=== PATIENT | female | born 1955 | race Caucasian/White ===

== ENCOUNTER 2018-11-23 13:37 | Observation (INO) | payer OTHER ==
[2018-11-23] MEDS ORDERED: MECLIZINE HCL 25 MG TAB PO ONE ×2 (13:51→16:07)
[2018-11-23] MEDS ORDERED: NS 1,000 ML IV ONE (13:51)
[2018-11-23] MEDS ORDERED: PROMETHAZINE HCL 25 MG/ML INJ IVP ONE (13:52)
--- NOTE | 2018-11-23 13:54 | EDPHY ---
H & P Time Seen by Provider: 11/23/18 13:41 HPI/ROS: CHIEF COMPLAINT: Severe dizziness HISTORY OF PRESENT ILLNESS: History of hypertension otherwise well. Arrives by EMS with symptoms. Was at home sitting floor and she got sudden onset of dizziness worse with changing position or moving her head. She describes that her head was suddenly spinning associated with severe nausea and vomiting. Denies headache on multiple queries, no neck pain. No recent injury. No difficulty with speech or motor or sensory. Symptoms severe and unable to walk. REVIEW OF SYSTEMS: Eye: no change in vision or double vision ENT: no sore throat Cardiac: no chest pain or syncope Pulmonary: no cough or SOB Abdomen: No abdominal pain Musculoskeletal: No neck pain Skin: no rash Neuro: HPI Constitutional: no fever : no urinary symptoms A comprehensive 10 point review of systems is otherwise negative aside from elements mentioned in the history of present illness. PAST MEDICAL HISTORY: Hypertension Social history: Here with her daughter, primarily Irish-speaking, spiral binder present in the room on arrival. General Appearance: Alert and conversant, cooperative. Appears uncomfortable. Eyes: No scleral icterus. Pupils equal reactive extraocular motion intact horizontal nystagmus looking to the right. ENT, Mouth: Normal mucous membranes. Normal tympanic membranes bilaterally. Respiratory: Normal respiratory effort, breath sounds equal, lungs are clear to auscultation. Cardiovascular: Regular rate and rhythm. Gastrointestinal: Abdomen is soft and non tender. Neurological: Alert, face symmetric, normal motor and sensory in extremities. Normal [id number] bilaterally. Speech fluent. Skin: Warm and dry, no rashes. Musculoskeletal: No neck stiffness. Psychiatric: Not agitated. Emergency Department course/MDM: Phenergan 12.5 and meclizine 25. Likely peripheral vertigo. Initially hypertensive pre-hospital with systolic greater than 200 but has decreased since arrival. I considered, but I think it is unlikely she is having cardiac problem or stroke, vertebral dissection, cerebellar bleed Differential diagnosis considered for dizziness including but not limited to peripheral and central causes of vertigo, orthostatic causes including dehydration, and blood loss. 1440: Patient re-evaluated, is sleeping now and was able to tolerate oral fluids and medications. Will recheck. 1606: Patient was able to get up with significant assistance from staff but really unable to walk on her own. Additional oral meclizine 25 mg. Still too dizzy, will be admitted for further evaluation and treatment. Smoking Status: Never smoked Constitutional: Initial Vital Signs Temperature (C) 36.6 C 11/23/18 13:41 Heart Rate 78 11/23/18 13:41 Respiratory Rate 18 11/23/18 13:41 Blood Pressure 136/101 H 11/23/18 13:41 O2 Sat (%) 97 11/23/18 13:41 O2 Delivery Mode Room Air Allergies/Adverse Reactions: No Known Allergies Allergy (Unverified 11/23/18 13:47) Home Medications: Medication Instructions Recorded Hydrochlorothiazide [HCTZ (*)] 25 mg PO DAILY 11/23/18 Medical Decision Making Consult/Admit Bed Type: [place] 1700 - Data Points Laboratory Results: Laboratory Results 11/23/18 13:50 11/23/18 13:50 11/23/18 11/23/18 13:50 13:50 WBC 9.32 10^3/uL 10^3/uL (3.80-9.50) RBC 4.67 10^6/uL 10^6/uL (4.18-5.33) Hgb 12.9 g/dL g/dL (12.6-16.3) Hct 39.4 % % (38.0-47.0) MCV 84.4 fL fL (81.5-99.8) MCH 27.6 pg L pg (27.9-34.1) MCHC 32.7 g/dL g/dL (32.4-36.7) RDW 14.7 % % (11.5-15.2) Plt Count 276 10^3/uL 10^3/uL (150-400) MPV 11.3 fL fL (8.7-11.7) Neut % (Auto) 54.6 % % (39.3-74.2) Lymph % (Auto) 35.9 % % (15.0-45.0) [place] % (Auto) 8.3 % % (4.5-13.0) Eos % (Auto) 0.6 % % (0.6-7.6) Baso % (Auto) 0.5 % % (0.3-1.7) Nucleat RBC Rel Count 0.0 % % (0.0-0.2) Absolute Neuts (auto) 5.08 10^3/uL 10^3/uL (1.70-6.50) Absolute Lymphs (auto) 3.35 10^3/uL H 10^3/uL (1.00-3.00) Absolute Monos (auto) 0.77 10^3/uL 10^3/uL (0.30-0.80) Absolute Eos (auto) 0.06 10^3/uL 10^3/uL (0.03-0.40) Absolute Basos (auto) 0.05 10^3/uL 10^3/uL (0.02-0.10) Absolute Nucleated RBC 0.00 10^3/uL 10^3/uL (0-0.01) Immature Gran % 0.1 % % (0.0-1.1) Immature Gran # 0.01 10^3/uL 10^3/uL (0.00-0.10) Sodium 139 mEq/L mEq/L (135-145) Potassium 3.2 mEq/L L mEq/L (3.5-5.2) Chloride 102 mEq/L mEq/L (97-110) Carbon Dioxide 22 mEq/l mEq/l (22-31) Anion Gap 15 mEq/L H mEq/L (6-14) BUN 25 mg/dL H mg/dL (7-23) Creatinine 1.1 mg/dL H mg/dL (0.6-1.0) Estimated GFR 50 Glucose 124 mg/dL H mg/dL (70-100) Calcium 10.0 mg/dL mg/dL (8.5-10.4) Medications Given: Discontinued Medications Sodium Chloride (Ns) 1,000 mls @ 0 mls/hr IV EDNOW ONE; Wide Open PRN Reason: Protocol Stop: 11/23/18 13:52 Last Admin: 11/23/18 14:15 Dose: 1,000 mls Meclizine HCl (Meclizine Hcl) 25 mg PO EDNOW ONE Stop: 11/23/18 13:52 Last Admin: 11/23/18 14:15 Dose: 25 mg Meclizine HCl (Meclizine Hcl) 25 mg PO EDNOW ONE Stop: 11/23/18 16:08 Last Admin: 11/23/18 16:29 Dose: 25 mg Promethazine HCl (Phenergan) 12.5 mg IVP EDNOW ONE Stop: 11/23/18 13:53 Last Admin: 11/23/18 14:13 Dose: 12.5 mg Departure - Departure Disposition: [facility] Inpatient Acute Clinical Impression: Vertigo Condition: Good
[2018-11-23 13:59] LABS: PLATELET COUNT 276 10^3/uL (150-400)
[2018-11-23] MEDS ORDERED: ONDANSETRON DISINTEGRATING 4 MG TAB PO PRN (18:56)
[2018-11-23] MEDS ORDERED: ACETAMINOPHEN 325 MG TAB PO PRN (18:56)
[2018-11-23] MEDS ORDERED: ONDANSETRON 4 MG/2 ML VIAL IVP PRN (18:56)
[2018-11-23] MEDS ORDERED: MECLIZINE HCL 25 MG TAB PO PRN (18:56)
[2018-11-23] MEDS ORDERED: NS W/ 20 KCl/L 1,000 ML IV SCH (19:00)
[2018-11-23] MEDS ORDERED: POTASSIUM CL 20 MEQ TAB PO ONE (19:00)
--- NOTE | 2018-11-23 19:00 | PDGENHP ---
History and Physical - Chief Complaint vertigo, vomiting, hypertension - History of Present Illness 63 yo female with h/o hypertension presents to ED by EMS with acute onset vertigo and vomiting. She was mopping the floor and suddenly felt very dizzy, describes as vertigo. This did not seem positional. She had associated vomiting and was unable to ambulate. EMS was called and her SBP was >200 per report. She had no associated chest pain or SOB. No vision changes. She does complain of mild headache now, but vertigo is completely resolved. Her BP on arrival to the ED is improved to 130's systolic. She is admitted for further evaluation and management. History Information - Allergies/Home Medication List Allergies/Adverse Reactions: No Known Allergies Allergy (Unverified 11/23/18 13:47) Home Medications: Hydrochlorothiazide [HCTZ (*)] 25 mg PO DAILY 11/23/18 [Last Taken 11/23/18] I have personally reviewed and updated: family history, medical history, social history, surgical history - Past Medical History hypertension - Surgical History Reports: no pertinent surgical hx - Family History Positive for: non-pertinent - Social History Smoking Status: Never smoked Alcohol Use: None Drug Use: None Additional social history: Lives independently, several daughters at bedside with multiple other family members Review of Systems Review of Systems: ROS: 10pt was reviewed & negative except for what was stated in HPI & below Physical Exam Physical Exam: Temp Pulse Resp BP Pulse Ox 36.8 C 77 14 135/84 H 96 11/23/18 17:43 11/23/18 17:43 11/23/18 17:43 11/23/18 17:43 11/23/18 17:43 Constitutional: no apparent distress Eyes: PERRL, other (+horizontal nystagmus towards right) Ears, Nose, Mouth, Throat: moist mucous membranes Cardiovascular: regular rate and rhythym Respiratory: no respiratory distress, clear to auscultation Gastrointestinal: normoactive bowel sounds, soft, non-tender abdomen Skin: warm Musculoskeletal: full muscle strength Neurologic: AAOx3, CN II-XII Intact, other (no facial asymmetry, neg pronator drift, 5/5 muscle strength b/l UE's and LE's) Psychiatric: interacting appropriately Lab Data & Imaging Review 11/23/18 13:50 11/23/18 13:50 WBC 9.32 10^3/uL (3.80-9.50) 11/23/18 13:50 RBC 4.67 10^6/uL (4.18-5.33) 11/23/18 13:50 Hgb 12.9 g/dL (12.6-16.3) 11/23/18 13:50 Hct 39.4 % (38.0-47.0) 11/23/18 13:50 MCV 84.4 fL (81.5-99.8) 11/23/18 13:50 MCH 27.6 pg (27.9-34.1) L 11/23/18 13:50 MCHC 32.7 g/dL (32.4-36.7) 11/23/18 13:50 RDW 14.7 % (11.5-15.2) 11/23/18 13:50 Plt Count 276 10^3/uL (150-400) 11/23/18 13:50 MPV 11.3 fL (8.7-11.7) 11/23/18 13:50 Neut % (Auto) 54.6 % (39.3-74.2) 11/23/18 13:50 Lymph % (Auto) 35.9 % (15.0-45.0) 11/23/18 13:50 [place] % (Auto) 8.3 % (4.5-13.0) 11/23/18 13:50 Eos % (Auto) 0.6 % (0.6-7.6) 11/23/18 13:50 Baso % (Auto) 0.5 % (0.3-1.7) 11/23/18 13:50 Nucleat RBC Rel Count 0.0 % (0.0-0.2) 11/23/18 13:50 Absolute Neuts (auto) 5.08 10^3/uL (1.70-6.50) 11/23/18 13:50 Absolute Lymphs (auto) 3.35 10^3/uL (1.00-3.00) H 11/23/18 13:50 Absolute Monos (auto) 0.77 10^3/uL (0.30-0.80) 11/23/18 13:50 Absolute Eos (auto) 0.06 10^3/uL (0.03-0.40) 11/23/18 13:50 Absolute Basos (auto) 0.05 10^3/uL (0.02-0.10) 11/23/18 13:50 Absolute Nucleated RBC 0.00 10^3/uL (0-0.01) 11/23/18 13:50 Immature Gran % 0.1 % (0.0-1.1) 11/23/18 13:50 Immature Gran # 0.01 10^3/uL (0.00-0.10) 11/23/18 13:50 Sodium 139 mEq/L (135-145) 11/23/18 13:50 Potassium 3.2 mEq/L (3.5-5.2) L 11/23/18 13:50 Chloride 102 mEq/L (97-110) 11/23/18 13:50 Carbon Dioxide 22 mEq/l (22-31) 11/23/18 13:50 Anion Gap 15 mEq/L (6-14) H 11/23/18 13:50 BUN 25 mg/dL (7-23) H 11/23/18 13:50 Creatinine 1.1 mg/dL (0.6-1.0) H 11/23/18 13:50 Estimated GFR 50 11/23/18 13:50 Glucose 124 mg/dL (70-100) H 11/23/18 13:50 Calcium 10.0 mg/dL (8.5-10.4) 11/23/18 13:50 Assessment & Plan Assessment: Vertigo (Acute) - In setting of SBP >200 (per EMS) with associated vomiting, not particularly positional by history though she is a poor historian. -check MRI to r/o brain stem stroke -PT/OT evals in am -prn meclizine JAYSON - suspect pre-renal, will hydrate overnight and recheck in am Hypokalemia - replace, follow Hypertension - currently normotensive -cont home meds in am Full code DVT PPLX - SCD's Dispo - obs
[2018-11-24] MEDS ORDERED: ENOXAPARIN 40 MG/0.4 ML SYR SC SCH (09:00)
--- NOTE | 2018-11-24 10:31 | ASDISCHSUM ---
Discharge Information Plan Status:Home with No Needs Medically Cleared to Leave:11/24/2018 Discharge Date:11/24/2018 CM D/C Disposition:Home, Routine, Self-Care ADT D/C Disposition:Home, Routine, Self-Care Projected Discharge Date:11/24/2018 Transportation at D/C:Family Discharge Delay Reason: Follow-Up Date:11/24/2018 Discharge Slot: Final Diagnosis: Placement Information Patient Contact Information Contact Name:DEEPALI Relationship:Daughter Address:[address] [address] Work Phone: City: [facility] Phone: State/Zip Code: Email: Financial Information Financial Class:Self-Pay Primary Plan Desc:WE CARE Primary Plan Number:99 Secondary Plan Desc: Secondary Plan Number: Assessment Information Case Management Discharge Plan Note Case Management Discharge Discharge Order Complete? Answers: Yes Patient to Obtain Answers: Independently Medications Transportation Arranged Answers: Family/Friends Discharge Comments Notes: CM met with patient and family with chalk machine operator. Patient states that she lives in [place] and planning to go back when she leaves the hospital. Family reports that they do not need anything before discharging. Patient will medically discharge independently. CM available if needed. Date Signed: 11/24/2018 10:28 AM Electronically Signed By:Annie Cedeno [facility] Length of stay for Answers: Less than 1 day current admission Acuity / Level of Answers: No Care: Did the patient have an inpatient admission? Comorbidities - select Answers: Other Notes: hypertension all that apply # of Emergency department Answers: 0 visits in the last 6 months Score: 1 Date Signed: 11/24/2018 10:31 AM Electronically Signed By:Annie Cedeno Intervention Information
[2018-11-24 11:55] VITALS: BP 134/84
--- NOTE | 2018-11-24 16:21 | GDS ---
[f rep st] DISCHARGE SUMMARY DISCHARGE DIAGNOSES: 1. Hypertension. 2. Acute kidney injury. 3. Hypokalemia. 4. Vertigo. HISTORY OF PRESENT ILLNESS: A 63-year-old Albanian-speaking female with hypertension presents the ED by EMS with acute onset of vertigo and vomiting. She was mopping the floor and suddenly felt very di zzy and described as vertigo. She was unable to ambulate. EMS reported systolic blood pressure grea ter than 200. Denied chest pain or shortness of breath initially. After arrival, she did complain o f a headache. Her BP on arrival improved to 130 systolic. HOSPITAL COURSE BY PROBLEM: 1. Acute vertigo. Likely in setting of elevated blood pressure and dehydration as demonstrated by h istory of poor oral intake and mild JAYSON. Brain MRI was negative for stroke. She is ambulating witho ut issue this morning, and symptoms have resolved. 2. JAYSON. Again, minimal p.o. intake with hydrochlorothiazide. I advised her to drink plenty of flui ds. She may restart her medication. 3. Hypokalemia. Repleted. 4. Hypertension. Systolics elevated at EMS, but have been normotensive here. I advised her to chec k her blood pressure at a pharmacy or buy a blood pressure cuff because if it is persistently elevate d, will need another medication. She needs to see her doctor. She is between here and [place]. 5. Disposition. The patient is stable for discharge home with family. NEW MEDICATIONS: None. FOLLOWUP: 1. Primary care physician. 2. Pharmacy for blood pressure checks. Exam and history were obtained with inpatient interpreter for the deaf. TIME SPENT ON DISCHARGE: Greater 30 minutes bedside, evaluated patient, counseling on medications, a nd followup plan. PHYSICAL EXAM: VITAL SIGNS: Temperature 37.1, blood pressure 132/77, heart rate in the 70s, respira tions 16, 95% on room. GENERAL: Well-appearing, in no acute distress. HEENT: PERRLA. Moist mucou s membranes. CV: Regular rate and rhythm. LUNGS: Clear. ABDOMEN: Soft, nontender, nondistended. Positive bowel sounds. : No Jules. MUSCULOSKELETAL: 5/5 upper and lower extremity strength. NEURO: 2 through 12 intact. PSYCHIATRIC: Alert and orient x3. /[id number]/MODL
== END 2018-11-24 13:30 | disposition home or self-care (01) ==
LOC: EDBD 16:41 → F3E 17:42
PROVIDERS: ADMIT Hospitalist; ATTEND Hospitalist
DX: I10 Essential (primary) hypertension (principal); N17.9 Acute kidney failure, unspecified; E87.6 Hypokalemia; R42 Dizziness and giddiness; E86.9 Volume depletion, unspecified
CPT/HCPCS: 70551-PN; 96374; G0378; J2550

== ENCOUNTER 2018-11-27 21:18 | Emergency (ER) | payer OTHER ==
[2018-11-27] MEDS ORDERED: NS 1,000 ML IV ONE (22:32)
[2018-11-27] MEDS ORDERED: MECLIZINE HCL 25 MG TAB PO ONE (22:35)
[2018-11-27] MEDS ORDERED: POTASSIUM CL 20 MEQ PKT PO ONE (22:56)
== END 2018-11-27 23:45 | disposition home or self-care (01) ==
DX: R42 Dizziness and giddiness (principal); E87.6 Hypokalemia; I10 Essential (primary) hypertension